=== PATIENT | female | born 1955 | race Caucasian/White ===

== ENCOUNTER 2019-04-08 13:41 | Emergency (ER) | payer OTHER, MEDICAID ==
[~2019-04-08] VITALS: Ht 160 cm; Wt 68.5 kg
[2019-04-08 13:41] VITALS: BP_SYST 137
[2019-04-08 16:28] VITALS: BP_SYST 127
== END 2019-04-08 16:29 | disposition home or self-care (01) ==
LOC: SED 13:41
DX: S01.511D Laceration without foreign body of lip, subsequent encounter (principal); W18.09XD Striking against other object with subsequent fall, subsequent encounter
CPT/HCPCS: 99281

== ENCOUNTER 2019-04-13 08:53 | Emergency (ER) | payer OTHER, MEDICAID ==
[~2019-04-13] VITALS: Ht 160 cm; Wt 67.6 kg
[2019-04-13 08:56] VITALS: BP_SYST 112
[2019-04-13 09:00] VITALS: BP_SYST 112
== END 2019-04-13 09:26 | disposition home or self-care (01) ==
LOC: SED 08:53
DX: S01.511D Laceration without foreign body of lip, subsequent encounter (principal); X58.XXXD Exposure to other specified factors, subsequent encounter
CPT/HCPCS: 99281

== ENCOUNTER 2019-05-02 21:00 | Emergency (ER) | payer OTHER, MEDICAID ==
[~2019-05-02] VITALS: Ht 160 cm; Wt 68.5 kg
[2019-05-02 21:15] VITALS: BP_SYST 100
[2019-05-02] MEDS ORDERED: LIDOCAINE 1% 10 MG/ML, 20 ML MDV INJ ONE (21:15)
--- NOTE | 2019-05-02 21:15 | NUR ---
Patient to ER bed 08 to gown for evaluation. Side rails up. Report received from MAYITO Hernandez
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
--- NOTE | 2019-05-02 21:30 | NUR ---
ER Dr. Doyle at bedside examining patient.
[2019-05-02] MEDS ORDERED: NEOMY SULF/BACITRAC ZN/POLY 28 GM OINT..GM. TP ONE (22:00)
--- NOTE | 2019-05-02 22:23 | NUR ---
Bacitracin not available at this time. Patient will be discharged with prescription to be filled.
--- NOTE | 2019-05-02 22:25 | NUR ---
Patient given written and verbal discharge instructions and verbalizes understanding. ER MD discussed with patient the results and treatment provided. Patient in stable condition. ID arm band removed. wound dressing applied, no active bleeding. Rx of neosporin given. Patient educated on pain management and to follow up with PMD in 2 days for wound check, and 7-9 days for suture removal. Opportunity for questions provided and answered. Medication side effect fact sheet provided.
[2019-05-02 22:29] VITALS: BP_SYST 112
== END 2019-05-02 22:25 | disposition home or self-care (01) ==
LOC: SED 21:00
DX: S41.112A Laceration without foreign body of left upper arm, initial encounter (principal); W45.8XXA Other foreign body or object entering through skin, initial encounter; Y93.89 Activity, other specified; Y92.89 Other specified places as the place of occurrence of the external cause; Y99.8 Other external cause status
CPT/HCPCS: 12002; 99283; J2001

== ENCOUNTER 2019-05-05 08:31 | Emergency (ER) | payer OTHER, MEDICAID ==
[~2019-05-05] VITALS: Ht 152.4 cm; Wt 72.6 kg
[2019-05-05 08:31] VITALS: BP_SYST 136
--- NOTE | 2019-05-05 08:34 | NUR ---
BROUGHT BACK TO BED #4 VIA WHEELCHAIR AND TRIAGED. REPORT GIVEN TO ZACKERY
--- NOTE | 2019-05-05 08:35 | NUR ---
Pt bib caregiver for wound check.
--- NOTE | 2019-05-05 08:40 | NUR ---
ALFRED Young at bedside examining patient.
--- NOTE | 2019-05-05 08:58 | NUR ---
Site to LA cleansed with NS. Site measures approximately approx 5cm. Nonadherent dressing and antibiotic ointment dressing applied. Tetanus vaccination current.
[2019-05-05] MEDS ORDERED: BACITRACIN 1 GM OINT TP ONE (09:00)
[2019-05-05 09:04] VITALS: BP_SYST 136
--- NOTE | 2019-05-05 09:04 | NUR ---
Patient given written and verbal discharge instructions and verbalizes understanding. ER MD discussed with patient the results and treatment provided. Patient in stable condition. ID arm band removed. No Rx given. Patient educated on pain management and to follow up with PMD. Pain Scale 0 Opportunity for questions provided and answered. Medication side effect fact sheet provided.
== END 2019-05-05 09:04 | disposition home or self-care (01) ==
LOC: SED 08:31
DX: S41.112D Laceration without foreign body of left upper arm, subsequent encounter (principal); X58.XXXD Exposure to other specified factors, subsequent encounter
CPT/HCPCS: 99281

== ENCOUNTER 2019-05-12 08:26 | Emergency (ER) | payer OTHER, MEDICAID ==
[~2019-05-12] VITALS: Ht 160 cm; Wt 71.2 kg
[2019-05-12 08:26] VITALS: BP_SYST 98
--- NOTE | 2019-05-12 08:26 | NUR ---
BROUGHT BACK TO BED #7 AND TRIAGED. REPORT GIVEN TO PRASAD
--- NOTE | 2019-05-12 08:42 | NUR ---
PATIENT CAME IN TO GET SUTURES REMOVED. DRESSING IS DRY AND INTACT. PATIENT FELL OUT OF WHEEL CHAIR LAST WEDNESDAY 05/02. PATIENT DENIES PAIN AND SOB. PATIENT DENIES NAUSEA AND VOMITING. PATIENT IS ALERT AND ORIENTED. 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
--- NOTE | 2019-05-12 08:46 | NUR ---
Luke la in [facility] - 05/12/19 at 0857 by SAMI MOTHER AT BEDSIDE.
--- NOTE | 2019-05-12 08:48 | NUR ---
ER Dr. HOANG at bedside examining patient.
--- NOTE | 2019-05-12 08:50 | NUR ---
Luke la in [facility] - 05/12/19 at 0903 by SAMI MOTHER AT BEDSIDE.
[2019-05-12 09:14] VITALS: BP_SYST 98
--- NOTE | 2019-05-12 09:14 | NUR ---
Patient given written and verbal discharge instructions and verbalizes understanding. ER MD discussed with patient the results and treatment provided. Patient in stable condition. ID arm band REMOVED. Rx of KEFLEX given. Patient educated on pain management and to follow up with PMD. Pain Scale 0/10. Opportunity for questions provided and answered. Medication side effect fact sheet provided.
== END 2019-05-12 09:14 | disposition home or self-care (01) ==
LOC: SED 08:26
DX: T81.33XD Disruption of traumatic injury wound repair, subsequent encounter (principal)
CPT/HCPCS: 99283

== ENCOUNTER 2019-05-19 08:41 | Emergency (ER) | payer OTHER, MEDICAID ==
[~2019-05-19] VITALS: Ht 157.5 cm; Wt 68.0 kg
[2019-05-19 08:41] VITALS: BP_SYST 104
--- NOTE | 2019-05-19 08:41 | NUR ---
BROUGHT BACK TO BED #1 VIA PTS WHEELCHAIR, PLACED IN BED AND TRIAGED. REPORT GIVEN TO PRASAD
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
--- NOTE | 2019-05-19 09:53 | NUR ---
ER Dr. CLEMENTS at bedside examining patient.
[2019-05-19 10:03] VITALS: BP_SYST 104
--- NOTE | 2019-05-19 10:03 | NUR ---
Patient given written and verbal discharge instructions and verbalizes understanding. ER MD discussed with patient the results and treatment provided. Patient in stable condition. ID arm band removed. NO Rx given. Patient educated on pain management and to follow up with PMD. Pain Scale 0/10. Opportunity for questions provided and answered. Medication side effect fact sheet provided.
== END 2019-05-19 10:03 | disposition home or self-care (01) ==
LOC: SED 08:41
DX: S41.112D Laceration without foreign body of left upper arm, subsequent encounter (principal); X58.XXXD Exposure to other specified factors, subsequent encounter
CPT/HCPCS: 99281

== ENCOUNTER 2023-01-05 17:48 | Emergency (ER) | payer OTHER, MEDICAID ==
[~2023-01-05] VITALS: Ht 160 cm; Wt 56.2 kg
[2023-01-05 17:52] VITALS: BP_SYST 82
--- NOTE | 2023-01-05 18:18 | NUR ---
RECHECKED B/P 90/46 HR 83
--- NOTE | 2023-01-05 18:22 | NUR ---
Patient to ER bed 03 to gown for evaluation. Side rails up.
[2023-01-05] MEDS ORDERED: LIDOCAINE 1% 10 MG/ML, 20 ML MDV ID ONE (18:30)
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
--- NOTE | 2023-01-05 18:54 | NUR ---
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
--- NOTE | 2023-01-05 19:24 | NUR ---
pt report to luis carlos rn
[2023-01-05 20:08] VITALS: BP_SYST 127
--- NOTE | 2023-01-05 20:18 | NUR ---
Patient given written and verbal discharge instructions and verbalizes understanding. ER MD discussed with patient the results and treatment provided. Patient in stable condition. ID arm band removed. Patient educated on pain management and to follow up with PMD. Pain Scale [0]. Opportunity for questions provided and answered.
== END 2023-01-05 20:16 | disposition home or self-care (01) ==
LOC: SED 17:48
DX: S62.630A Displaced fracture of distal phalanx of right index finger, initial encounter for closed fracture (principal); S61.210A Laceration without foreign body of right index finger without damage to nail, initial encounter; S61.212A Laceration without foreign body of right middle finger without damage to nail, initial encounter; I10 Essential (primary) hypertension; Z79.899 Other long term (current) drug therapy; W23.0XXA Caught, crushed, jammed, or pinched between moving objects, initial encounter; Y93.89 Activity, other specified; Y92.89 Other specified places as the place of occurrence of the external cause; Y99.8 Other external cause status
CPT/HCPCS: 99283; 73130; 12002; 29130; J2001

== ENCOUNTER 2023-12-29 20:08 | Emergency (ER) | payer OTHER, MEDICAID ==
[~2023-12-29] VITALS: Ht 160 cm; Wt 68.0 kg
[2023-12-29 20:55] VITALS: BP_SYST 126; PULSE 92; RESP 20; TEMP 98.2; O2SAT 100
[2023-12-29 21:13] LABS: BASOPHILS # (AUTO) 0.1 K/uL (0.0-0.2); BASOPHILS % (AUTO) 0.7 % (0.0-2.0); EOSINOPHILS # (AUTO) 0.2 K/uL (0.0-0.4); EOSINOPHILS % (AUTO) 2.9 % (0.0-4.0); HEMATOCRIT 30.3 % (36-48); HEMOGLOBIN 10.3 g/dL (12.0-16.0); LYMPHOCYTES % (AUTO) 27.5 % (20.5-51.5); MEAN CORPUSCULAR HEMOGLOBIN 32 pg (27-31); MEAN CORPUSCULAR HGB CONC 34 % (32-36); MEAN CORPUSCULAR VOLUME 95 fL (79.0-98.0); NEUTROPHILS # (AUTO) 4.1 K/uL (1.8-7.7); NEUTROPHILS % (AUTO) 54.9 % (40.0-70.0); PLATELET COUNT (AUTO) 187 K/uL (130-430); RED BLOOD CELL COUNT(AUTO) 3.18 MIL/uL (4.2-6.2); RED CELL DISTRIBUTION WIDTH 14.6 % (9.0-15.0); WHITE BLOOD COUNT (AUTO) 7.4 K/uL (4.8-10.8)
[2023-12-29 21:44] LABS: PROTHROMBIN TIME 10.4 SECS (9.5-12.5)
[2023-12-29 21:59] LABS: ALANINE AMINOTRANSFERASE 15 U/L (12-78); ALBUMIN 2.6 g/dL (3.4-4.8); ANION GAP 6 (5-15); ASPARTATE AMINOTRANSFERASE 15 U/L (10-37); CALCIUM 8.5 mg/dL (8.4-11.0); CARBON DIOXIDE 28 mmol/L (23-29); CHLORIDE 107 mmol/L (98-107); CREATININE 1.02 mg/dL (0.55-1.30); GFR AFRICAN AMERICAN 70 mL/min (>90); GLUCOSE 99 mg/dL (74-106); POTASSIUM 4.8 mmol/L (3.5-5.1); SODIUM SERUM 141 mmol/L (136-145); TOTAL BILIRUBIN 0.2 mg/dL (0.0-1.0); UREA NITROGEN, BLOOD 21 mg/dL (8-21)
[2023-12-29 22:01] LABS: GFR NON AFRICAN-AMERICAN 58 mL/min (>90)
[2023-12-29 22:06] LABS: BILIRUBIN,DIRECT 0.1 mg/dL (0.0-0.3); CREATINE KINASE, TOTAL 33 U/L (26-192); FREE T4 (FREE THYROXINE) 1.2 ng/dl (0.8-1.5); THYROID STIMULATING HORMONE 1.52 uIu/mL (0.36-3.74)
[2023-12-29 22:59] LABS: BILIRUBIN,URINE NEGATIVE (NEGATIVE); BLOOD, URINE NEGATIVE (NEGATIVE); COLOR,URINE YELLOW (YELLOW); GLUCOSE,URINE NEGATIVE (NEGATIVE); KETONES,URINE TRACE (NEGATIVE); LEUKOCYTE ESTERASE ,URINE NEGATIVE (NEGATIVE); NITRITE, URINE NEGATIVE (NEGATIVE); PH,URINE 7.5 (5.0-8.0); PROTEIN URINE NEGATIVE (NEGATIVE)
[2023-12-29 23:04] LABS: CLARITY/URINE SLIGHTLY HAZY (CLEAR)
[2023-12-30 00:16] VITALS: RESP 20; TEMP 98.2
[2023-12-30 00:20] VITALS: BP_SYST 152; PULSE 97; O2SAT 96
== END 2023-12-30 00:20 | disposition home or self-care (01) ==
LOC: SED 20:08
DX: S22.050A Wedge compression fracture of T5-T6 vertebra, initial encounter for closed fracture (principal); R51.9 Headache, unspecified; M54.50 Low back pain, unspecified; I10 Essential (primary) hypertension; Z79.899 Other long term (current) drug therapy; W01.0XXA Fall on same level from slipping, tripping and stumbling without subsequent striking against object, initial encounter; Y93.89 Activity, other specified; Y92.89 Other specified places as the place of occurrence of the external cause; Y99.8 Other external cause status
CPT/HCPCS: 36415; 70450-TC; 71045; 72128; 72131; 80048; 80076; 81001; 81003; 82550; 83605; 84439; 84443; 84484; 85025; 85610; 85730; 93005; 99285

== ENCOUNTER 2024-02-24 17:48 | Inpatient (IN) | payer OTHER, MEDICAID ==
[~2024-02-24] VITALS: Ht 157.5 cm; Wt 62.6 kg
[~2024-02-24 17:48] MED LIST: APIX5TAB PO; BUPR-551 PO; DIVA500T PO; FLUT16SP16 NS; FOLI-43 PO; IBUP-1505 PO; IPRA3AMP9 INH; LEVO88CA4; LORA0.5T PO; LURA40TA2 PO; MEGE400O45 PO; MEMA10TA22 PO; MIDO5TAB4 PO; MONT-47 PO; MULT-1184 PO; PANT20TA2 PO; VENL150C53 PO; VITD2000 PO
[2024-02-24 18:08] VITALS: BP_SYST 127; PULSE 95; RESP 17; TEMP 97.5; O2SAT 96
[2024-02-24] MEDS: NACL 0.9% 1,000 ML IV ONE (18:51)
[2024-02-24 18:57] LABS: HEMATOCRIT 29.7 % (36-48); HEMOGLOBIN 9.9 g/dL (12.0-16.0); MEAN CORPUSCULAR HEMOGLOBIN 31 pg (27-31); MEAN CORPUSCULAR HGB CONC 33 % (32-36); MEAN CORPUSCULAR VOLUME 93 fL (79.0-98.0); PLATELET COUNT (AUTO) 166 K/uL (130-430); RED BLOOD CELL COUNT(AUTO) 3.19 MIL/uL (4.2-6.2); RED CELL DISTRIBUTION WIDTH 15.5 % (9.0-15.0); WHITE BLOOD COUNT (AUTO) 6.6 K/uL (4.8-10.8)
[2024-02-24 20:12] LABS: ANISOCYTOSIS 1+; BAND % (MANUAL) 6 % (0-6); BASOPHILS % (MANUAL) 0 % (0-2); EOSINOPHILS % (MANUAL) 7 % (0-7); LYMPHOCYTES % (MANUAL) 19 % (20-46); MONOCYTES % (MANUAL) 18 % (0-11); OVALOCYTES FEW; PLATELET ESTIMATE ADEQUATE (ADEQUATE)
[2024-02-24 20:21] LABS: INR 1.2 (0.8-1.2)
[2024-02-24 20:30] LABS: BILIRUBIN,URINE NEGATIVE (NEGATIVE); BLOOD, URINE 1+ (NEGATIVE); CLARITY/URINE CLOUDY (CLEAR); COLOR,URINE YELLOW (YELLOW); GLUCOSE,URINE NEGATIVE (NEGATIVE); KETONES,URINE NEGATIVE (NEGATIVE); LEUKOCYTE ESTERASE ,URINE 3+ (NEGATIVE); NITRITE, URINE POSITIVE (NEGATIVE); PROTEIN URINE 2+ (NEGATIVE); UROBILINOGEN,URINE 0.2 (0.2-1.0)
[2024-02-24 20:32] LABS: ALANINE AMINOTRANSFERASE 15 U/L (12-78); ALBUMIN 2.5 g/dL (3.4-4.8); ANION GAP 11 (5-15); ASPARTATE AMINOTRANSFERASE 16 U/L (10-37); BILIRUBIN,DIRECT 0.1 mg/dL (0.0-0.3); CALCIUM 8.2 mg/dL (8.4-11.0); CARBON DIOXIDE 21 mmol/L (23-29); CHLORIDE 103 mmol/L (98-107); CREATININE 1.83 mg/dL (0.55-1.30); FREE T4 (FREE THYROXINE) 1.2 ng/dl (0.8-1.5); GFR AFRICAN AMERICAN 36 mL/min (>90); GLUCOSE 97 mg/dL (74-106); SODIUM SERUM 135 mmol/L (136-145); THYROID STIMULATING HORMONE 4.28 uIu/mL (0.36-3.74); TOTAL BILIRUBIN 0.2 mg/dL (0.0-1.0); TOTAL PROTEIN, SERUM 5.8 g/dL (6.4-8.3); UREA NITROGEN, BLOOD 23 mg/dL (8-21)
[2024-02-24 20:35] LABS: GFR NON AFRICAN-AMERICAN 29 mL/min (>90)
[2024-02-24] MEDS ORDERED: VANCOMYCIN HCL 1000 MG/VIAL IV ONE (20:56)
[2024-02-24] MEDS ORDERED: PIPERACILLIN/TAZOBACTAM 3.375 GM/VIAL (ZOSYN) IV ONE (20:56)
[2024-02-24] MEDS: PIPERACILLIN/TAZO 3.375 GM in NS 50 ML IV ONE (20:59)
[2024-02-24] MEDS: VANCOMYCIN HCL 1,000 MG in NS 250 ML IV ONE (21:00)
[2024-02-24 21:02] LABS: BACTERIA,URINE MANY /HPF (None Seen); WBC,URINE 50-80 /HPF (0-3)
[2024-02-24] MEDS ORDERED: HYDROcodone/ACETAMIN 5-325 MG TAB (NORCO/ VICODIN) PO PRN (22:00)
[2024-02-24] MEDS ORDERED: MORPHINE 2 MG/ML INJ. SYRINGE IVP PRN (22:00)
[2024-02-24] MEDS ORDERED: HYDROcodone/ACETAMIN 10-325 MG TAB PO PRN (22:00)
[2024-02-24] MEDS ORDERED: ONDANSETRON HCL 4 MG/2 ML VIAL IVP PRN (22:00)
[2024-02-24 22:15] VITALS: BP_SYST 124; PULSE 95; O2SAT 94
[2024-02-25] VITALS (9 sets, daily range): BP systolic 87–121; PULSE 63–101; RESP 18–20; TEMP 96.8–97.6; O2SAT 94–97
[2024-02-25] MEDS: PIPERACILLIN/TAZOBACTAM 3.375 GM/VIAL (ZOSYN) IV ONE (04:01)
[2024-02-25] MEDS: PIPERACILLIN/TAZO 3.375/DEX-IS 50 ML IV SCH (04:02)
[2024-02-25 05:08] LABS: INFLUENZA TYPE A Negative (NEGATIVE); INFLUENZA TYPE B NEGATIVE (NEGATIVE)
[2024-02-25] MEDS: NS 500 ML IV ONE (08:56)
[2024-02-25 09:30] LABS: BASOPHILS % (AUTO) 0.9 % (0.0-2.0); EOSINOPHILS # (AUTO) 0.2 K/uL (0.0-0.4); EOSINOPHILS % (AUTO) 5.3 % (0.0-4.0); HEMATOCRIT 26.3 % (36-48); HEMOGLOBIN 8.6 g/dL (12.0-16.0); LYMPHOCYTES # (AUTO) 1.2 K/uL (1.0-5.5); LYMPHOCYTES % (AUTO) 25.6 % (20.5-51.5); MEAN CORPUSCULAR HEMOGLOBIN 31 pg (27-31); MEAN CORPUSCULAR HGB CONC 33 % (32-36); MEAN CORPUSCULAR VOLUME 93 fL (79.0-98.0); MONOCYTES # (AUTO) 0.9 K/uL (0.0-1.0); MONOCYTES % (AUTO) 19.8 % (1.7-9.3); NEUTROPHILS # (AUTO) 2.2 K/uL (1.8-7.7); NEUTROPHILS % (AUTO) 48.4 % (40.0-70.0); PLATELET COUNT (AUTO) 143 K/uL (130-430); RED BLOOD CELL COUNT(AUTO) 2.82 MIL/uL (4.2-6.2); RED CELL DISTRIBUTION WIDTH 15.7 % (9.0-15.0); WHITE BLOOD COUNT (AUTO) 4.6 K/uL (4.8-10.8)
[2024-02-25 09:43] LABS: ALBUMIN 2.1 g/dL (3.4-4.8); CALCIUM 8.3 mg/dL (8.4-11.0); CREATININE 1.32 mg/dL (0.55-1.30); POTASSIUM 4.1 mmol/L (3.5-5.1); TOTAL BILIRUBIN 0.4 mg/dL (0.0-1.0); TOTAL PROTEIN, SERUM 5.5 g/dL (6.4-8.3)
[2024-02-25] MEDS: D5NS 500 ML IV SCH (13:01)
[2024-02-25] MEDS ORDERED: NON-FORMULARY MEDICATION (Lurasidone Hcl (Latuda) 40 MG) PO SCH (17:00)
[2024-02-25] MEDS: FUROSEMIDE 20 MG/2 ML VIAL IVP ONE (17:45)
[2024-02-25] MEDS: LORazepam 2 MG/ML VIAL IM PRN (19:54)
[2024-02-25] MEDS ORDERED: VANCOMYCIN HCL 750 MG in NS 250 ML IV SCH (21:00)
[2024-02-25] MEDS ORDERED: MIRTAZAPINE 15 MG TABLET PO SCH (21:00)
[2024-02-25] MEDS: MONTELUKAST 10 MG TABLET PO SCH (22:49)
[2024-02-25] MEDS: MEGESTROL ACETATE 400 MG/10 ML UDC PO SCH (22:49)
[2024-02-25] MEDS: APIXABAN 2.5 MG TABLET PO SCH (22:50)
[2024-02-25] MEDS: MEMANTINE HCL 5 MG TABLET PO SCH (22:50)
[2024-02-25] MEDS: MIDODRINE HCL 5 MG TABLET (PROAMATINE) PO SCH (22:56)
[2024-02-25] MEDS: DIVALPROEX SODIUM 500 MG TAB.SR.24H (DEPAKOTE ER) PO ONE (22:57)
[2024-02-26 01:30] VITALS: BP_SYST 103; PULSE 96; RESP 16; TEMP 96.5; O2SAT 97
[2024-02-26 04:55] LABS: BASOPHILS % (AUTO) 0.5 % (0.0-2.0); EOSINOPHILS # (AUTO) 0.3 K/uL (0.0-0.4); EOSINOPHILS % (AUTO) 4.3 % (0.0-4.0); HEMATOCRIT 28.4 % (36-48); HEMOGLOBIN 9.3 g/dL (12.0-16.0); LYMPHOCYTES # (AUTO) 1.8 K/uL (1.0-5.5); LYMPHOCYTES % (AUTO) 27.3 % (20.5-51.5); MEAN CORPUSCULAR HEMOGLOBIN 30 pg (27-31); MEAN CORPUSCULAR HGB CONC 33 % (32-36); MEAN CORPUSCULAR VOLUME 92 fL (79.0-98.0); MONOCYTES # (AUTO) 1.1 K/uL (0.0-1.0); MONOCYTES % (AUTO) 16.8 % (1.7-9.3); NEUTROPHILS # (AUTO) 3.3 K/uL (1.8-7.7); NEUTROPHILS % (AUTO) 51.1 % (40.0-70.0); PLATELET COUNT (AUTO) 164 K/uL (130-430); RED BLOOD CELL COUNT(AUTO) 3.08 MIL/uL (4.2-6.2); RED CELL DISTRIBUTION WIDTH 15.5 % (9.0-15.0); WHITE BLOOD COUNT (AUTO) 6.5 K/uL (4.8-10.8)
[2024-02-26 05:32] LABS: ALBUMIN 2.3 g/dL (3.4-4.8); CALCIUM 8.9 mg/dL (8.4-11.0); CREATININE 1.12 mg/dL (0.55-1.30); POTASSIUM 3.8 mmol/L (3.5-5.1); TOTAL BILIRUBIN 0.4 mg/dL (0.0-1.0); TOTAL PROTEIN, SERUM 6.2 g/dL (6.4-8.3)
[2024-02-26] MEDS: LEVOTHYROXINE SODIUM 0.088 MG TABLET PO SCH (07:00)
[2024-02-26 08:05] VITALS: O2SAT 99
[2024-02-26] MEDS: DIVALPROEX SODIUM 500 MG TAB.SR.24H (DEPAKOTE ER) PO SCH (09:00)
[2024-02-26 11:27] VITALS: BP_SYST 132; PULSE 85; RESP 16; TEMP 97.5; O2SAT 97
[2024-02-26] MEDS: FLUMAZENIL 0.1 MG/ML IVP ONE (15:36)
[2024-02-26 15:40] LABS: ABG O2 SAT% ESTIMATE 98.3 % (94.0-100.0); BLOOD GAS HCO3 20.7 mmol/L (21.0-27.0); BLOOD GAS PCO2 32.3 mmHg (35.0-45.0); BLOOD GAS PH 7.424 (7.350-7.450); BLOOD GAS PO2 114.1 mmHg (75.0-100.0)
[2024-02-26 15:44] LABS: ALLEN'S TEST POSITIVE (P)
[2024-02-26] MEDS ORDERED: HALOPERIDOL LACTATE 5 MG/ML VIAL IM PRN (18:00)
[2024-02-26] MEDS: LURASIDONE 40 MG PO SCH (18:00)
[2024-02-26] MEDS ORDERED: LORazepam 2 MG/ML VIAL IV PRN (18:00)
[2024-02-26] MEDS ORDERED: LORazepam 2 MG/ML VIAL IM PRN (18:00)
[2024-02-26 20:00] VITALS: BP_SYST 120; PULSE 85; RESP 18; TEMP 97.7; O2SAT 97
[2024-02-26 22:50] VITALS: O2SAT 99
[2024-02-26] MEDS: ALBUTEROL SULFATE 0.083% 2.5 MG/3 ML VIAL.NEB INH PRN (22:50)
[2024-02-27] VITALS (10 sets, daily range): BP systolic 102–122; PULSE 78–91; RESP 16–18; TEMP 97.1–97.6; O2SAT 3–100
[2024-02-27 06:55] LABS: BASOPHILS # (AUTO) 0.1 K/uL (0.0-0.2); BASOPHILS % (AUTO) 1.2 % (0.0-2.0); EOSINOPHILS # (AUTO) 0.4 K/uL (0.0-0.4); EOSINOPHILS % (AUTO) 6.2 % (0.0-4.0); HEMATOCRIT 30.5 % (36-48); LYMPHOCYTES # (AUTO) 2.1 K/uL (1.0-5.5); LYMPHOCYTES % (AUTO) 29.2 % (20.5-51.5); MEAN CORPUSCULAR HEMOGLOBIN 31 pg (27-31); MEAN CORPUSCULAR HGB CONC 33 % (32-36); MEAN CORPUSCULAR VOLUME 93 fL (79.0-98.0); MONOCYTES % (AUTO) 14.6 % (1.7-9.3); NEUTROPHILS # (AUTO) 3.5 K/uL (1.8-7.7); NEUTROPHILS % (AUTO) 48.8 % (40.0-70.0); PLATELET COUNT (AUTO) 162 K/uL (130-430); RED BLOOD CELL COUNT(AUTO) 3.27 MIL/uL (4.2-6.2); RED CELL DISTRIBUTION WIDTH 15.2 % (9.0-15.0); WHITE BLOOD COUNT (AUTO) 7.2 K/uL (4.8-10.8)
[2024-02-27 07:04] LABS: CALCIUM 8.6 mg/dL (8.4-11.0); CREATININE 0.91 mg/dL (0.55-1.30); POTASSIUM 3.6 mmol/L (3.5-5.1); TOTAL BILIRUBIN 0.4 mg/dL (0.0-1.0); TOTAL PROTEIN, SERUM 5.8 g/dL (6.4-8.3)
[2024-02-27] MEDS ORDERED: FLUTICASONE FUROATE 100 MCG BLST.W.DEV INH SCH (09:00)
[2024-02-27] MEDS: D5NS 1,000 ML IV SCH (18:27)
[2024-02-27] MEDS: D5W IV SCH (18:28)
[2024-02-27] MEDS: VALPROATE SODIUM IV SCH (18:28)
[2024-02-27] MEDS: ENOXAPARIN SODIUM 30 MG/0.3 ML SYRINGE SUBCUT SCH (19:45)
[2024-02-27] MEDS: BUDESONIDE 0.5 MG/2 ML AMPUL.NEB INH SCH (20:30)
[2024-02-27] MEDS: DOXYCYCLINE HYCLATE 100 MG in D5W 100 ML IV SCH (21:04)
[2024-02-28] VITALS (10 sets, daily range): BP systolic 98–133; PULSE 70–95; RESP 17–18; TEMP 96.7–98.7; O2SAT 92–99
[2024-02-28] MEDS ORDERED: PHENYTOIN SODIUM 100 MG/2 ML VIAL (DILANTIN) IVP PRN (00:15)
[2024-02-28 06:24] LABS: BASOPHILS # (AUTO) 0.1 K/uL (0.0-0.2); BASOPHILS % (AUTO) 0.8 % (0.0-2.0); EOSINOPHILS # (AUTO) 0.5 K/uL (0.0-0.4); EOSINOPHILS % (AUTO) 6.5 % (0.0-4.0); HEMATOCRIT 32.2 % (36-48); HEMOGLOBIN 10.4 g/dL (12.0-16.0); LYMPHOCYTES # (AUTO) 2.4 K/uL (1.0-5.5); LYMPHOCYTES % (AUTO) 34.3 % (20.5-51.5); MEAN CORPUSCULAR HEMOGLOBIN 30 pg (27-31); MEAN CORPUSCULAR HGB CONC 32 % (32-36); MEAN CORPUSCULAR VOLUME 94 fL (79.0-98.0); MONOCYTES % (AUTO) 14.3 % (1.7-9.3); NEUTROPHILS # (AUTO) 3.1 K/uL (1.8-7.7); NEUTROPHILS % (AUTO) 44.1 % (40.0-70.0); PLATELET COUNT (AUTO) 194 K/uL (130-430); RED BLOOD CELL COUNT(AUTO) 3.43 MIL/uL (4.2-6.2); RED CELL DISTRIBUTION WIDTH 15.7 % (9.0-15.0); WHITE BLOOD COUNT (AUTO) 7.1 K/uL (4.8-10.8)
[2024-02-28 06:51] LABS: CALCIUM 8.5 mg/dL (8.4-11.0); CREATININE 0.81 mg/dL (0.55-1.30); TOTAL BILIRUBIN 0.3 mg/dL (0.0-1.0); TOTAL PROTEIN, SERUM 5.9 g/dL (6.4-8.3)
[2024-02-28] MEDS: ACETAMINOPHEN 325 MG TABLET PO PRN (08:53)
[2024-02-28] MEDS ORDERED: DIVALPROEX SODIUM 500 MG TAB.SR.24H (DEPAKOTE ER) PO ONE (11:00)
[2024-02-28] MEDS ORDERED: DIVALPROEX SODIUM 500 MG TAB.SR.24H (DEPAKOTE ER) PO SCH (21:00)
[2024-02-28] MEDS: APIXABAN 2.5 MG TABLET PO SCH (21:15)
[2024-02-28] MEDS: DIVALPROEX SODIUM 500 MG TAB.SR.24H (DEPAKOTE ER) PO SCH (21:57)
[2024-02-29] VITALS (8 sets, daily range): BP systolic 102–124; PULSE 80–100; RESP 16–20; TEMP 96.8–99; O2SAT 97–99
[2024-02-29] MEDS: LORazepam 1 MG TABLET PO PRN (01:18)
[2024-02-29 04:29] LABS: BASOPHILS % (AUTO) 0.5 % (0.0-2.0); EOSINOPHILS # (AUTO) 0.3 K/uL (0.0-0.4); EOSINOPHILS % (AUTO) 2.9 % (0.0-4.0); HEMOGLOBIN 10.3 g/dL (12.0-16.0); LYMPHOCYTES # (AUTO) 3.3 K/uL (1.0-5.5); LYMPHOCYTES % (AUTO) 32.4 % (20.5-51.5); MEAN CORPUSCULAR HEMOGLOBIN 31 pg (27-31); MEAN CORPUSCULAR HGB CONC 33 % (32-36); MEAN CORPUSCULAR VOLUME 92 fL (79.0-98.0); MONOCYTES # (AUTO) 1.3 K/uL (0.0-1.0); MONOCYTES % (AUTO) 12.5 % (1.7-9.3); NEUTROPHILS # (AUTO) 5.3 K/uL (1.8-7.7); NEUTROPHILS % (AUTO) 51.7 % (40.0-70.0); PLATELET COUNT (AUTO) 213 K/uL (130-430); RED BLOOD CELL COUNT(AUTO) 3.36 MIL/uL (4.2-6.2); RED CELL DISTRIBUTION WIDTH 15.3 % (9.0-15.0); WHITE BLOOD COUNT (AUTO) 10.3 K/uL (4.8-10.8)
[2024-02-29 05:12] LABS: ALBUMIN 2.1 g/dL (3.4-4.8); CALCIUM 8.9 mg/dL (8.4-11.0); CREATININE 0.83 mg/dL (0.55-1.30); POTASSIUM 3.6 mmol/L (3.5-5.1); TOTAL BILIRUBIN 0.3 mg/dL (0.0-1.0); TOTAL PROTEIN, SERUM 5.9 g/dL (6.4-8.3)
[2024-02-29] MEDS: NS IV SCH (10:01)
[2024-02-29] MEDS: MINOCYCLINE HCL IV SCH (10:01)
[2024-02-29] MEDS: BISACODYL 10 MG/SUPPOSITORY RC PRN (18:53)
[2024-02-29] MEDS: DOXYCYCLINE HYCLATE 100 MG in D5W 100 ML IV SCH (20:52)
[2024-03-01 00:45] VITALS: BP_SYST 141; PULSE 89; RESP 19; TEMP 97.6; O2SAT 99
[2024-03-01 04:41] LABS: BASOPHILS # (AUTO) 0.1 K/uL (0.0-0.2); BASOPHILS % (AUTO) 0.8 % (0.0-2.0); EOSINOPHILS # (AUTO) 0.6 K/uL (0.0-0.4); EOSINOPHILS % (AUTO) 6.3 % (0.0-4.0); HEMATOCRIT 33.2 % (36-48); HEMOGLOBIN 10.9 g/dL (12.0-16.0); LYMPHOCYTES # (AUTO) 3.8 K/uL (1.0-5.5); LYMPHOCYTES % (AUTO) 40.6 % (20.5-51.5); MEAN CORPUSCULAR HEMOGLOBIN 31 pg (27-31); MEAN CORPUSCULAR HGB CONC 33 % (32-36); MEAN CORPUSCULAR VOLUME 94 fL (79.0-98.0); MONOCYTES % (AUTO) 10.5 % (1.7-9.3); NEUTROPHILS # (AUTO) 3.9 K/uL (1.8-7.7); NEUTROPHILS % (AUTO) 41.8 % (40.0-70.0); PLATELET COUNT (AUTO) 216 K/uL (130-430); RED BLOOD CELL COUNT(AUTO) 3.55 MIL/uL (4.2-6.2); RED CELL DISTRIBUTION WIDTH 15.8 % (9.0-15.0); WHITE BLOOD COUNT (AUTO) 9.4 K/uL (4.8-10.8)
[2024-03-01 05:23] LABS: CREATININE 0.74 mg/dL (0.55-1.30); POTASSIUM 4.2 mmol/L (3.5-5.1)
[2024-03-01 05:27] LABS: ERYTHROCYTE SEDIMENTATION RATE 18 MM/HR (0-20)
[2024-03-01 08:00] VITALS: O2SAT 96
[2024-03-01] MEDS ORDERED: DOXY100C5 PO (09:15)
[2024-03-01 09:16] VITALS: O2SAT 99
[2024-03-01 11:49] VITALS: BP_SYST 103; PULSE 95; RESP 17; TEMP 97.5; O2SAT 97
[2024-03-01] MEDS ORDERED: NORMAL SALINE 5 ML DISP.SYRIN IVF SCH (14:00)
[2024-03-01 14:08] VITALS: BP_SYST 103; PULSE 92; RESP 18; TEMP 98.4; O2SAT 97
== END 2024-03-01 15:10 | disposition home or self-care (01) | DRG 871 ==
LOC: SED 17:48 → STU 21:51
PROVIDERS: ADMIT Family Medicine; ATTEND Family Medicine
DX: A41.9 Sepsis, unspecified organism (principal); E43 Unspecified severe protein-calorie malnutrition; J69.0 Pneumonitis due to inhalation of food and vomit; J96.21 Acute and chronic respiratory failure with hypoxia; G93.41 Metabolic encephalopathy; J18.9 Pneumonia, unspecified organism; N17.9 Acute kidney failure, unspecified; F03.93 Unspecified dementia, unspecified severity, with mood disturbance; E86.0 Dehydration; N30.90 Cystitis, unspecified without hematuria; E03.9 Hypothyroidism, unspecified; G40.909 Epilepsy, unspecified, not intractable, without status epilepticus; E88.09 Other disorders of plasma-protein metabolism, not elsewhere classified; D64.9 Anemia, unspecified; E83.51 Hypocalcemia; B96.1 Klebsiella pneumoniae [K. pneumoniae] as the cause of diseases classified elsewhere; N31.9 Neuromuscular dysfunction of bladder, unspecified; N18.9 Chronic kidney disease, unspecified; E16.2 Hypoglycemia, unspecified; R62.50 Unspecified lack of expected normal physiological development in childhood; Z79.01 Long term (current) use of anticoagulants; Z79.899 Other long term (current) drug therapy; Z68.25 Body mass index [BMI] 25.0-25.9, adult
CPT/HCPCS: 36415; 36600; 70450-TC; 71045; 76770; 80048; 80053; 80076; 81000; 81001; 81015; 82803; 82948; 83605; 83735; 83880; 84439; 84443; 84484; 85007; 85025; 85027; 85610; 85651; 85730; 87040; 87081; 87086; 87186; 92610-GN; 93005; 94070; 94640; 94660; 94664; 94760; 95816; 96365; 96367; 97110-GP; 97112-GP; 97530-GP; 99285; G0378; J1650; J1940; J2060; J2543; J3370; J3490; J7050; J7060; J7626

== ENCOUNTER 2024-03-03 11:59 | Emergency (ER) | payer OTHER, MEDICAID ==
[~2024-03-03] VITALS: Ht 160 cm; Wt 68.5 kg
[~2024-03-03 11:59] MED LIST changes: -BUPR-551 PO; +BUPR300T46 PO; +DOXY100C5 PO
[2024-03-03 12:02] VITALS: BP_SYST 101; PULSE 104; RESP 18; TEMP 97.7; O2SAT 98
[2024-03-03] MEDS: SODIUM PHOSPHATE,MONO-DIBASIC 133 ML ENEMA RC ONE (13:04)
[2024-03-03] MEDS ORDERED: PEG4000S4 PO (14:35)
[2024-03-03 15:24] VITALS: BP_SYST 109; PULSE 70; RESP 18; TEMP 97.9; O2SAT 98
== END 2024-03-03 14:56 ==
LOC: SED 11:59
DX: K59.00 Constipation, unspecified (principal); J45.909 Unspecified asthma, uncomplicated; I10 Essential (primary) hypertension; Z79.899 Other long term (current) drug therapy; Z79.2 Long term (current) use of antibiotics
CPT/HCPCS: 99284

== ENCOUNTER 2024-04-07 10:48 | Observation (INO) | payer OTHER, MEDICAID ==
[~2024-04-07] VITALS: Ht 160 cm; Wt 58.5 kg
[~2024-04-07 10:48] MED LIST changes: +BUPR-551 PO; -BUPR300T46 PO; +PEG4000S4 PO
[2024-04-07 10:52] VITALS: BP_SYST 188; PULSE 100; RESP 18; TEMP 97.2; O2SAT 91
[2024-04-07] MEDS: NS 250 ML IV ONE ×2 (12:56→20:32)
[2024-04-07 14:10] LABS: ALANINE AMINOTRANSFERASE 14 U/L (12-78); ALBUMIN 2.1 g/dL (3.4-4.8); ANION GAP 7 (5-15); ASPARTATE AMINOTRANSFERASE 14 U/L (10-37); BASOPHILS % (AUTO) 0.4 % (0.0-2.0); CALCIUM 8.9 mg/dL (8.4-11.0); CARBON DIOXIDE 27 mmol/L (23-29); CHLORIDE 106 mmol/L (98-107); CREATININE 1.02 mg/dL (0.55-1.30); EOSINOPHILS # (AUTO) 0.2 K/uL (0.0-0.4); EOSINOPHILS % (AUTO) 2.4 % (0.0-4.0); GFR AFRICAN AMERICAN 70 mL/min (>90); GLUCOSE 80 mg/dL (74-106); HEMATOCRIT 32.3 % (36-48); HEMOGLOBIN 10.5 g/dL (12.0-16.0); LYMPHOCYTES # (AUTO) 1.8 K/uL (1.0-5.5); LYMPHOCYTES % (AUTO) 27.9 % (20.5-51.5); MEAN CORPUSCULAR HEMOGLOBIN 31 pg (27-31); MEAN CORPUSCULAR HGB CONC 32 % (32-36); MEAN CORPUSCULAR VOLUME 96 fL (79.0-98.0); MONOCYTES % (AUTO) 15.1 % (1.7-9.3); NEUTROPHILS # (AUTO) 3.5 K/uL (1.8-7.7); NEUTROPHILS % (AUTO) 54.2 % (40.0-70.0); PLATELET COUNT (AUTO) 179 K/uL (130-430); POTASSIUM 4.3 mmol/L (3.5-5.1); RED BLOOD CELL COUNT(AUTO) 3.38 MIL/uL (4.2-6.2); RED CELL DISTRIBUTION WIDTH 16.4 % (9.0-15.0); SODIUM SERUM 140 mmol/L (136-145); TOTAL BILIRUBIN 0.2 mg/dL (0.0-1.0); TOTAL PROTEIN, SERUM 5.4 g/dL (6.4-8.3); UREA NITROGEN, BLOOD 22 mg/dL (8-21); WHITE BLOOD COUNT (AUTO) 6.4 K/uL (4.8-10.8)
[2024-04-07 14:12] LABS: BILIRUBIN,DIRECT 0.1 mg/dL (0.0-0.3); GFR NON AFRICAN-AMERICAN 58 mL/min (>90); LIPASE 25 U/L (16-77)
[2024-04-07] MEDS: ACETAMINOPHEN 325 MG TABLET PO ONE (15:33)
[2024-04-07 16:16] LABS: BILIRUBIN,URINE NEGATIVE (NEGATIVE); BLOOD, URINE 3+ (NEGATIVE); COLOR,URINE YELLOW (YELLOW); GLUCOSE,URINE NEGATIVE (NEGATIVE); KETONES,URINE NEGATIVE (NEGATIVE); LEUKOCYTE ESTERASE ,URINE 3+ (NEGATIVE); NITRITE, URINE NEGATIVE (NEGATIVE); PROTEIN URINE 2+ (NEGATIVE); UROBILINOGEN,URINE 0.2 (0.2-1.0)
[2024-04-07 16:17] LABS: CLARITY/URINE HAZY (CLEAR)
[2024-04-07 16:38] LABS: BACTERIA,URINE MANY /HPF (None Seen); WBC,URINE 50-80 /HPF (0-3)
[2024-04-07] MEDS: cefTRIAXone 1 GM IVPB PREMIX 50 ML IV ONE (18:17)
[2024-04-07 21:30] VITALS: BP_SYST 98; PULSE 97; RESP 16; TEMP 97.4; O2SAT 97
[2024-04-07] MEDS: D5/0.45 NS 1,000 ML IV ONE (21:39)
[2024-04-08 00:31] VITALS: BP_SYST 112; PULSE 97; RESP 18; TEMP 97.1; O2SAT 97
[2024-04-08 08:00] VITALS: O2SAT 92
[2024-04-08] MEDS ORDERED: cefTRIAXone 1 GM VIAL IM ONE (09:00)
[2024-04-08] MEDS: IPRATROPIUM/ALBUTEROL SULFATE 3 ML AMPUL.NEB (DUONEB) INH SCH (09:30)
[2024-04-08] MEDS ORDERED: GOLYTELY / COLYTE SOLUTION 4 LITERS PO SCH (09:30)
[2024-04-08 09:40] VITALS: PULSE 99; O2SAT 97
[2024-04-08 12:10] VITALS: BP_SYST 115; PULSE 92; RESP 15; TEMP 97.2; O2SAT 96
[2024-04-08] MEDS ORDERED: MIDO5TAB4 PO (12:39)
[2024-04-08] MEDS ORDERED: LEVO250T73 PO (12:41)
[2024-04-08 16:09] VITALS: BP_SYST 115; PULSE 92; RESP 15; TEMP 97.2; O2SAT 96
[2024-04-08] MEDS ORDERED: CEFTRIAXONE SOD 1 GM/ D5W 50 ML IV SCH (18:00)
[2024-04-08] MEDS ORDERED: MONTELUKAST 10 MG TABLET PO SCH (21:00)
[2024-04-08] MEDS ORDERED: MEMANTINE HCL 5 MG TABLET PO SCH (21:00)
[2024-04-08] MEDS ORDERED: MIDODRINE HCL 5 MG TABLET (PROAMATINE) PO SCH (21:00)
[2024-04-08] MEDS ORDERED: MEGESTROL ACETATE 400 MG/10 ML UDC PO SCH (21:00)
[2024-04-08] MEDS ORDERED: DIVALPROEX SODIUM 500 MG TAB.SR.24H (DEPAKOTE ER) PO SCH (21:00)
[2024-04-09] MEDS ORDERED: FOLIC ACID 1 MG TABLET PO SCH (09:00)
[2024-04-09] MEDS ORDERED: PANTOPRAZOLE SODIUM 40 MG TAB PO SCH (09:00)
[2024-04-09] MEDS ORDERED: CHOLECALCIFEROL (VITAMIN D3) 2,000 UNIT TABLET PO SCH (09:00)
[2024-04-09] MEDS ORDERED: FLUTICASONE PROPIONATE 50 mCg/SPRAY 16 GM NS SCH (09:00)
[2024-04-09] MEDS ORDERED: DIVALPROEX SODIUM 500 MG TAB.SR.24H (DEPAKOTE ER) PO SCH (09:00)
[2024-04-09] MEDS ORDERED: POLYETHYLENE GLYCOL 3350, 17 GM/ POWD.PACK PO SCH (09:00)
== END 2024-04-08 16:54 | disposition home or self-care (01) ==
LOC: SED 10:48 → SMU 20:29
PROVIDERS: ADMIT Specialist; ATTEND Specialist
DX: N39.0 Urinary tract infection, site not specified (principal); I95.9 Hypotension, unspecified; G62.9 Polyneuropathy, unspecified; F03.90 Unspecified dementia, unspecified severity, without behavioral disturbance, psychotic disturbance, mood disturbance, and anxiety; J45.909 Unspecified asthma, uncomplicated; R44.3 Hallucinations, unspecified; R10.9 Unspecified abdominal pain; Z74.01 Bed confinement status; Z79.899 Other long term (current) drug therapy
CPT/HCPCS: 96361 ×2; 96365; 80076; 80048; 81000; 81015; 81001; 83880; 83690; 85025; 87086; 87186; 84484; 36415; 93005; 71045; 70450; 74176; 99285; 83605; 94070; 97110; 97112; 97530; 97162; J0696; G0378 ×2; J7060

== ENCOUNTER 2024-06-17 16:20 | Inpatient (IN) | payer OTHER, MEDICAID ==
[~2024-06-17] VITALS: Ht 157.5 cm; Wt 65.3 kg
[~2024-06-17 16:20] MED LIST changes: -DOXY100C5 PO; -IBUP-1505 PO; +LEVO250T73 PO; -LORA0.5T PO; -PEG4000S4 PO
[2024-06-17 16:35] VITALS: BP_SYST 124; PULSE 118; RESP 18; TEMP 102; O2SAT 95
[2024-06-17 18:17] LABS: BASOPHILS % (AUTO) 0.2 % (0.0-2.0); EOSINOPHILS % (AUTO) 0.1 % (0.0-4.0); HEMATOCRIT 35.3 % (36-48); HEMOGLOBIN 11.9 g/dL (12.0-16.0); LYMPHOCYTES # (AUTO) 0.4 K/uL (1.0-5.5); LYMPHOCYTES % (AUTO) 8.4 % (20.5-51.5); MEAN CORPUSCULAR HEMOGLOBIN 30 pg (27-31); MEAN CORPUSCULAR HGB CONC 34 % (32-36); MEAN CORPUSCULAR VOLUME 90 fL (79.0-98.0); MONOCYTES % (AUTO) 0.9 % (1.7-9.3); NEUTROPHILS # (AUTO) 4.6 K/uL (1.8-7.7); NEUTROPHILS % (AUTO) 90.4 % (40.0-70.0); PLATELET COUNT (AUTO) 200 K/uL (130-430); RED BLOOD CELL COUNT(AUTO) 3.94 MIL/uL (4.2-6.2); RED CELL DISTRIBUTION WIDTH 15.9 % (9.0-15.0); WHITE BLOOD COUNT (AUTO) 5.1 K/uL (4.8-10.8)
[2024-06-17 18:21] LABS: INR 1.1 (0.8-1.2); PROTHROMBIN TIME 11.4 SECS (9.5-12.5)
[2024-06-17 18:34] LABS: ALANINE AMINOTRANSFERASE 12 U/L (12-78); ALBUMIN 2.2 g/dL (3.4-4.8); ANION GAP 13 (5-15); ASPARTATE AMINOTRANSFERASE 16 U/L (10-37); BILIRUBIN,DIRECT 0.1 mg/dL (0.0-0.3); CALCIUM 9.6 mg/dL (8.4-11.0); CARBON DIOXIDE 22 mmol/L (23-29); CHLORIDE 104 mmol/L (98-107); CREATINE KINASE, TOTAL 61 U/L (26-192); CREATININE 1.43 mg/dL (0.55-1.30); GFR AFRICAN AMERICAN 47 mL/min (>90); GLUCOSE 108 mg/dL (74-106); POTASSIUM 3.5 mmol/L (3.5-5.1); SODIUM SERUM 139 mmol/L (136-145); TOTAL BILIRUBIN 0.4 mg/dL (0.0-1.0); TOTAL PROTEIN, SERUM 6.8 g/dL (6.4-8.3); UREA NITROGEN, BLOOD 24 mg/dL (8-21)
[2024-06-17 18:35] LABS: GFR NON AFRICAN-AMERICAN 39 mL/min (>90)
[2024-06-17 18:58] LABS: ACETONE, SERUM NEGATIVE (NEGATIVE)
[2024-06-17] MEDS: cefTRIAXone 1 GM IVPB PREMIX 50 ML IV ONE (19:00)
[2024-06-17] MEDS: NACL 0.9% 2,000 ML IV ONE (19:04)
[2024-06-17 19:44] LABS: COVID19 ANTIGEN SOFIA FIA NEGATIVE (NEGATIVE)
[2024-06-17 19:45] LABS: INFLUENZA TYPE A Negative (NEGATIVE); INFLUENZA TYPE B NEGATIVE (NEGATIVE)
[2024-06-17] MEDS ORDERED: AZITHROMYCIN 500 MG/VIAL (ZITHROMAX) IV ONE (20:47)
[2024-06-17] MEDS: AZITHROMYCIN 500 MG in NS 250 ML IV ONE (21:24)
[2024-06-17 23:04] LABS: BILIRUBIN,URINE NEGATIVE (NEGATIVE); BLOOD, URINE 2+ (NEGATIVE); CLARITY/URINE CLEAR (CLEAR); COLOR,URINE YELLOW (YELLOW); GLUCOSE,URINE NEGATIVE (NEGATIVE); KETONES,URINE NEGATIVE (NEGATIVE); LEUKOCYTE ESTERASE ,URINE 2+ (NEGATIVE); NITRITE, URINE POSITIVE (NEGATIVE); PROTEIN URINE TRACE (NEGATIVE); UROBILINOGEN,URINE 0.2 (0.2-1.0)
[2024-06-17 23:25] LABS: BACTERIA,URINE MODERATE /HPF (None Seen); RBC,URINE >100 /HPF (0-3); WBC,URINE >100 /HPF (0-3)
[2024-06-18] MEDS: cefTRIAXone 1 GM IVPB PREMIX 50 ML IV SCH (01:08)
[2024-06-18] MEDS: D5/0.45 NS 1,000 ML IV SCH (01:15)
[2024-06-18] MEDS ORDERED: LORA-258 PO (01:17)
[2024-06-18] MEDS ORDERED: IBUP100O21 PO (01:17)
[2024-06-18] MEDS ORDERED: FURO-150 PO (01:17)
[2024-06-18] MEDS ORDERED: APIX2.5T PO (01:17)
[2024-06-18] MEDS ORDERED: LORA-259 PO (01:17)
[2024-06-18] MEDS ORDERED: BACL10TA PO (01:17)
[2024-06-18 03:20] VITALS: BP_SYST 110; PULSE 78; RESP 20; TEMP 97.6; O2SAT 96
[2024-06-18 04:22] VITALS: BP_SYST 110; PULSE 78; RESP 20; TEMP 97.8; O2SAT 96
[2024-06-18] MEDS ORDERED: D5W 1,000 ML IV PRN (07:45)
[2024-06-18] MEDS ORDERED: GLUCOSE (DEXTROSE) ORAL GEL -Adults PO PRN (07:45)
[2024-06-18 10:00] VITALS: O2SAT 95
[2024-06-18 12:06] LABS: BASOPHILS % (AUTO) 0.2 % (0.0-2.0); EOSINOPHILS # (AUTO) 0.1 K/uL (0.0-0.4); EOSINOPHILS % (AUTO) 0.4 % (0.0-4.0); HEMATOCRIT 27.4 % (36-48); HEMOGLOBIN 8.8 g/dL (12.0-16.0); LYMPHOCYTES # (AUTO) 1.4 K/uL (1.0-5.5); LYMPHOCYTES % (AUTO) 7.5 % (20.5-51.5); MEAN CORPUSCULAR HEMOGLOBIN 29 pg (27-31); MEAN CORPUSCULAR HGB CONC 32 % (32-36); MEAN CORPUSCULAR VOLUME 91 fL (79.0-98.0); MONOCYTES # (AUTO) 1.4 K/uL (0.0-1.0); MONOCYTES % (AUTO) 7.5 % (1.7-9.3); NEUTROPHILS # (AUTO) 15.5 K/uL (1.8-7.7); NEUTROPHILS % (AUTO) 84.4 % (40.0-70.0); PLATELET COUNT (AUTO) 139 K/uL (130-430); RED CELL DISTRIBUTION WIDTH 16.1 % (9.0-15.0); WHITE BLOOD COUNT (AUTO) 18.3 K/uL (4.8-10.8)
[2024-06-18 12:24] LABS: ALBUMIN 1.7 g/dL (3.4-4.8); CREATININE 1.28 mg/dL (0.55-1.30); TOTAL PROTEIN, SERUM 5.4 g/dL (6.4-8.3)
[2024-06-18] MEDS: DEXTROSE 50% JECT 50 ML DISP.SYRIN IVP PRN (12:25)
[2024-06-18 12:38] LABS: TOTAL BILIRUBIN 0.2 mg/dL (0.0-1.0)
[2024-06-18 14:12] VITALS: BP_SYST 111; PULSE 59; RESP 20; TEMP 97.2; O2SAT 95
[2024-06-18] MEDS: PIPERACILLIN/TAZO 3.375 GM in D5W 50 ML IV SCH (14:22)
[2024-06-18 17:19] VITALS: BP_SYST 119; PULSE 97; RESP 16; TEMP 98.6; O2SAT 99
[2024-06-18 20:00] VITALS: BP_SYST 125; PULSE 90; RESP 16; TEMP 97.3; O2SAT 94
[2024-06-18] MEDS ORDERED: HALOPERIDOL LACTATE 5 MG/ML VIAL IM PRN (20:30)
[2024-06-18] MEDS: KCL 20 mEq in 100 mL (PREMIX) 100 ML IV SCH (22:14)
[2024-06-19] VITALS (7 sets, daily range): BP systolic 113–137; PULSE 89–107; RESP 15–20; TEMP 97.2–98.4; O2SAT 95–97
[2024-06-19 06:28] LABS: BASOPHILS % (AUTO) 0.1 % (0.0-2.0); EOSINOPHILS # (AUTO) 0.1 K/uL (0.0-0.4); EOSINOPHILS % (AUTO) 0.5 % (0.0-4.0); HEMATOCRIT 29.2 % (36-48); HEMOGLOBIN 9.5 g/dL (12.0-16.0); LYMPHOCYTES # (AUTO) 1.1 K/uL (1.0-5.5); LYMPHOCYTES % (AUTO) 6.4 % (20.5-51.5); MEAN CORPUSCULAR HEMOGLOBIN 29 pg (27-31); MEAN CORPUSCULAR HGB CONC 33 % (32-36); MEAN CORPUSCULAR VOLUME 90 fL (79.0-98.0); MONOCYTES % (AUTO) 5.9 % (1.7-9.3); NEUTROPHILS # (AUTO) 14.3 K/uL (1.8-7.7); NEUTROPHILS % (AUTO) 87.1 % (40.0-70.0); PLATELET COUNT (AUTO) 160 K/uL (130-430); RED BLOOD CELL COUNT(AUTO) 3.25 MIL/uL (4.2-6.2); WHITE BLOOD COUNT (AUTO) 16.5 K/uL (4.8-10.8)
[2024-06-19 06:46] LABS: CALCIUM 9.2 mg/dL (8.4-11.0); CREATININE 0.99 mg/dL (0.55-1.30); POTASSIUM 3.4 mmol/L (3.5-5.1)
[2024-06-19 12:34] LABS: BASOPHILS % (AUTO) 0.1 % (0.0-2.0); EOSINOPHILS # (AUTO) 0.1 K/uL (0.0-0.4); EOSINOPHILS % (AUTO) 0.6 % (0.0-4.0); HEMATOCRIT 27.9 % (36-48); HEMOGLOBIN 9.1 g/dL (12.0-16.0); LYMPHOCYTES # (AUTO) 0.9 K/uL (1.0-5.5); LYMPHOCYTES % (AUTO) 6.1 % (20.5-51.5); MEAN CORPUSCULAR HEMOGLOBIN 29 pg (27-31); MEAN CORPUSCULAR HGB CONC 33 % (32-36); MEAN CORPUSCULAR VOLUME 90 fL (79.0-98.0); MONOCYTES # (AUTO) 0.9 K/uL (0.0-1.0); MONOCYTES % (AUTO) 6.2 % (1.7-9.3); NEUTROPHILS # (AUTO) 12.7 K/uL (1.8-7.7); PLATELET COUNT (AUTO) 151 K/uL (130-430); WHITE BLOOD COUNT (AUTO) 14.6 K/uL (4.8-10.8)
[2024-06-19] MEDS: IPRATROPIUM/ALBUTEROL SULFATE 3 ML AMPUL.NEB (DUONEB) INH SCH (21:35)
[2024-06-20] VITALS (11 sets, daily range): BP systolic 120–139; PULSE 60–93; RESP 16–20; TEMP 97.1–98; O2SAT 95–99
[2024-06-20 07:40] LABS: BASOPHILS % (AUTO) 0.2 % (0.0-2.0); EOSINOPHILS # (AUTO) 0.2 K/uL (0.0-0.4); EOSINOPHILS % (AUTO) 1.6 % (0.0-4.0); HEMATOCRIT 29.2 % (36-48); HEMOGLOBIN 9.3 g/dL (12.0-16.0); LYMPHOCYTES # (AUTO) 1.1 K/uL (1.0-5.5); LYMPHOCYTES % (AUTO) 9.4 % (20.5-51.5); MEAN CORPUSCULAR HEMOGLOBIN 29 pg (27-31); MEAN CORPUSCULAR HGB CONC 32 % (32-36); MEAN CORPUSCULAR VOLUME 91 fL (79.0-98.0); MONOCYTES # (AUTO) 0.9 K/uL (0.0-1.0); MONOCYTES % (AUTO) 7.8 % (1.7-9.3); NEUTROPHILS # (AUTO) 9.1 K/uL (1.8-7.7); PLATELET COUNT (AUTO) 146 K/uL (130-430); RED BLOOD CELL COUNT(AUTO) 3.21 MIL/uL (4.2-6.2); RED CELL DISTRIBUTION WIDTH 16.2 % (9.0-15.0); WHITE BLOOD COUNT (AUTO) 11.2 K/uL (4.8-10.8)
[2024-06-20 07:51] LABS: CALCIUM 9.4 mg/dL (8.4-11.0); CREATININE 1.07 mg/dL (0.55-1.30); POTASSIUM 3.2 mmol/L (3.5-5.1)
[2024-06-20] MEDS ORDERED: POTASSIUM CHLORIDE 40 MEQ in 0.45% NS 250 ML IV ONE (11:30)
[2024-06-20] MEDS: KCL 20 mEq in 100 mL (PREMIX) 100 ML IV SCH (13:03)
[2024-06-20] MEDS ORDERED: MEMANTINE HCL 7 MG CAP.SPR.24 PO SCH (21:00)
[2024-06-20] MEDS ORDERED: LORazepam 1 MG TABLET PO SCH (21:00)
[2024-06-20] MEDS: DIVALPROEX SODIUM 500 MG TAB.SR.24H (DEPAKOTE ER) PO ONE (21:30)
[2024-06-20] MEDS: MEGESTROL ACETATE 400 MG/10 ML UDC PO SCH (21:35)
[2024-06-20] MEDS: MIDODRINE HCL 5 MG TABLET (PROAMATINE) PO SCH (21:35)
[2024-06-20] MEDS: MEMANTINE HCL 5 MG TABLET PO SCH (21:36)
[2024-06-20] MEDS: APIXABAN 2.5 MG TABLET PO SCH (21:39)
[2024-06-21] VITALS (10 sets, daily range): BP systolic 102–139; PULSE 73–87; RESP 16–18; TEMP 96.9–98.1; O2SAT 95–99
[2024-06-21] MEDS: VALPROIC ACID ORAL SYRUP 250 MG/5 ML UDC PO ONE (00:42)
[2024-06-21] MEDS: LEVOTHYROXINE SODIUM 0.088 MG TABLET PO SCH (06:00)
[2024-06-21] MEDS: FLUTICASONE PROPIONATE 50 mCg/SPRAY 16 GM NS SCH (08:48)
[2024-06-21] MEDS: DIVALPROEX SODIUM 125 MG CAP.(DEPAKOTE SPRINKLE) PO SCH ×2 (08:49→12:34)
[2024-06-21] MEDS: buPROPion HCL 150 MG XL TAB PO SCH (08:49)
[2024-06-21] MEDS: Effexor 37.5 MG TAB PO SCH (08:49)
[2024-06-21] MEDS: PANTOPRAZOLE SODIUM 40 MG TAB PO SCH (08:50)
[2024-06-21] MEDS: FUROSEMIDE 20 MG TABLET PO SCH (08:50)
[2024-06-21] MEDS: FOLIC ACID 1 MG TABLET PO SCH (08:50)
[2024-06-21] MEDS: CHOLECALCIFEROL (VITAMIN D3) 2,000 UNIT TABLET PO SCH (08:50)
[2024-06-21] MEDS ORDERED: DIVALPROEX SODIUM 500 MG TAB.SR.24H (DEPAKOTE ER) PO SCH (09:00)
[2024-06-21 10:27] LABS: BASOPHILS % (AUTO) 0.3 % (0.0-2.0); EOSINOPHILS # (AUTO) 0.4 K/uL (0.0-0.4); HEMATOCRIT 30.4 % (36-48); HEMOGLOBIN 9.8 g/dL (12.0-16.0); LYMPHOCYTES # (AUTO) 1.8 K/uL (1.0-5.5); MEAN CORPUSCULAR HEMOGLOBIN 29 pg (27-31); MEAN CORPUSCULAR HGB CONC 32 % (32-36); MEAN CORPUSCULAR VOLUME 90 fL (79.0-98.0); MONOCYTES # (AUTO) 1.4 K/uL (0.0-1.0); MONOCYTES % (AUTO) 12.1 % (1.7-9.3); NEUTROPHILS # (AUTO) 8.3 K/uL (1.8-7.7); NEUTROPHILS % (AUTO) 69.6 % (40.0-70.0); PLATELET COUNT (AUTO) 170 K/uL (130-430); RED CELL DISTRIBUTION WIDTH 16.1 % (9.0-15.0); WHITE BLOOD COUNT (AUTO) 11.9 K/uL (4.8-10.8)
[2024-06-21 10:45] LABS: CALCIUM 8.9 mg/dL (8.4-11.0); CREATININE 1.01 mg/dL (0.55-1.30); POTASSIUM 3.7 mmol/L (3.5-5.1)
[2024-06-21] MEDS: MONTELUKAST 10 MG TABLET PO SCH (17:48)
[2024-06-22] VITALS (8 sets, daily range): BP systolic 95–122; PULSE 75–97; RESP 18–19; TEMP 97.2–99.2; O2SAT 92–99
[2024-06-22 01:20] LABS: BILIRUBIN,URINE NEGATIVE (NEGATIVE); BLOOD, URINE 2+ (NEGATIVE); CLARITY/URINE SL CLOUDY (CLEAR); COLOR,URINE YELLOW (YELLOW); GLUCOSE,URINE NEGATIVE (NEGATIVE); KETONES,URINE NEGATIVE (NEGATIVE); NITRITE, URINE NEGATIVE (NEGATIVE); PH,URINE 6.5 (5.0-8.0); PROTEIN URINE NEGATIVE (NEGATIVE); UROBILINOGEN,URINE 0.2 (0.2-1.0)
[2024-06-22 01:38] LABS: LEUKOCYTE ESTERASE ,URINE TRACE (NEGATIVE)
[2024-06-22 01:53] LABS: YEAST,URINE Few /HPF (None Seen)
[2024-06-22 01:54] LABS: BACTERIA,URINE FEW /HPF (None Seen)
[2024-06-22 07:54] LABS: BASOPHILS % (AUTO) 0.3 % (0.0-2.0); EOSINOPHILS # (AUTO) 0.4 K/uL (0.0-0.4); EOSINOPHILS % (AUTO) 2.7 % (0.0-4.0); HEMOGLOBIN 9.7 g/dL (12.0-16.0); LYMPHOCYTES % (AUTO) 14.3 % (20.5-51.5); MEAN CORPUSCULAR HEMOGLOBIN 29 pg (27-31); MEAN CORPUSCULAR HGB CONC 32 % (32-36); MEAN CORPUSCULAR VOLUME 90 fL (79.0-98.0); MONOCYTES # (AUTO) 1.9 K/uL (0.0-1.0); MONOCYTES % (AUTO) 13.7 % (1.7-9.3); NEUTROPHILS # (AUTO) 9.6 K/uL (1.8-7.7); PLATELET COUNT (AUTO) 198 K/uL (130-430); RED BLOOD CELL COUNT(AUTO) 3.34 MIL/uL (4.2-6.2)
[2024-06-22 08:30] LABS: CALCIUM 8.6 mg/dL (8.4-11.0); CREATININE 0.93 mg/dL (0.55-1.30); POTASSIUM 3.1 mmol/L (3.5-5.1)
[2024-06-22] MEDS: POTASSIUM CHLORIDE 20 MEQ/PKT PACKET PO ONE (13:17)
[2024-06-23] VITALS (9 sets, daily range): BP systolic 79–108; PULSE 82–88; RESP 12–20; TEMP 96.2–98.8; O2SAT 91–99
[2024-06-23 10:50] LABS: BASOPHILS % (AUTO) 0.2 % (0.0-2.0); EOSINOPHILS # (AUTO) 0.4 K/uL (0.0-0.4); EOSINOPHILS % (AUTO) 3.1 % (0.0-4.0); HEMATOCRIT 25.4 % (36-48); HEMOGLOBIN 8.5 g/dL (12.0-16.0); LYMPHOCYTES # (AUTO) 1.7 K/uL (1.0-5.5); LYMPHOCYTES % (AUTO) 13.9 % (20.5-51.5); MEAN CORPUSCULAR HEMOGLOBIN 30 pg (27-31); MEAN CORPUSCULAR HGB CONC 33 % (32-36); MEAN CORPUSCULAR VOLUME 90 fL (79.0-98.0); MONOCYTES # (AUTO) 1.7 K/uL (0.0-1.0); MONOCYTES % (AUTO) 13.8 % (1.7-9.3); NEUTROPHILS # (AUTO) 8.6 K/uL (1.8-7.7); PLATELET COUNT (AUTO) 187 K/uL (130-430); RED BLOOD CELL COUNT(AUTO) 2.83 MIL/uL (4.2-6.2); RED CELL DISTRIBUTION WIDTH 16.5 % (9.0-15.0); WHITE BLOOD COUNT (AUTO) 12.5 K/uL (4.8-10.8)
[2024-06-23 11:14] LABS: CALCIUM 8.5 mg/dL (8.4-11.0); CREATININE 0.91 mg/dL (0.55-1.30)
[2024-06-23] MEDS: CEFEPIME 2 GM in D5W 100 ML IV SCH (18:00)
[2024-06-23] MEDS: LORazepam 2 MG/ML VIAL IM PRN (23:25)
[2024-06-24] VITALS (10 sets, daily range): BP systolic 110–125; PULSE 74–89; RESP 16–18; TEMP 97.2–98.4; O2SAT 94–97
[2024-06-24 08:32] LABS: BASOPHILS % (AUTO) 0.1 % (0.0-2.0); EOSINOPHILS # (AUTO) 0.4 K/uL (0.0-0.4); EOSINOPHILS % (AUTO) 3.2 % (0.0-4.0); HEMATOCRIT 26.6 % (36-48); HEMOGLOBIN 8.5 g/dL (12.0-16.0); LYMPHOCYTES # (AUTO) 1.5 K/uL (1.0-5.5); LYMPHOCYTES % (AUTO) 11.7 % (20.5-51.5); MEAN CORPUSCULAR HEMOGLOBIN 29 pg (27-31); MEAN CORPUSCULAR HGB CONC 32 % (32-36); MEAN CORPUSCULAR VOLUME 91 fL (79.0-98.0); MONOCYTES # (AUTO) 1.3 K/uL (0.0-1.0); MONOCYTES % (AUTO) 10.3 % (1.7-9.3); NEUTROPHILS # (AUTO) 9.5 K/uL (1.8-7.7); NEUTROPHILS % (AUTO) 74.7 % (40.0-70.0); PLATELET COUNT (AUTO) 229 K/uL (130-430); RED BLOOD CELL COUNT(AUTO) 2.92 MIL/uL (4.2-6.2); RED CELL DISTRIBUTION WIDTH 16.4 % (9.0-15.0); WHITE BLOOD COUNT (AUTO) 12.8 K/uL (4.8-10.8)
[2024-06-24 08:51] LABS: CREATININE 0.93 mg/dL (0.55-1.30); POTASSIUM 3.1 mmol/L (3.5-5.1)
[2024-06-24] MEDS ORDERED: CEFE2FRO IV (15:18)
[2024-06-25] VITALS (8 sets, daily range): BP systolic 108–138; PULSE 76–98; RESP 16–21; TEMP 96.9–98.6; O2SAT 93–99
== END 2024-06-25 17:00 | DRG 871 ==
LOC: SED 16:20 → SMU 06-18 00:18 → STU 06-18 15:00 → SMU 06-22 05:26
PROVIDERS: ADMIT Specialist; ATTEND Specialist
DX: A41.51 Sepsis due to Escherichia coli [E. coli] (principal); G93.41 Metabolic encephalopathy; J69.0 Pneumonitis due to inhalation of food and vomit; J96.00 Acute respiratory failure, unspecified whether with hypoxia or hypercapnia; J18.9 Pneumonia, unspecified organism; E87.0 Hyperosmolality and hypernatremia; N12 Tubulo-interstitial nephritis, not specified as acute or chronic; N17.9 Acute kidney failure, unspecified; Z20.822 Contact with and (suspected) exposure to COVID-19; E03.9 Hypothyroidism, unspecified; G40.909 Epilepsy, unspecified, not intractable, without status epilepticus; R13.10 Dysphagia, unspecified; J45.909 Unspecified asthma, uncomplicated; F79 Unspecified intellectual disabilities; D64.9 Anemia, unspecified; Z88.1 Allergy status to other antibiotic agents; Z79.899 Other long term (current) drug therapy; Z79.01 Long term (current) use of anticoagulants
CPT/HCPCS: 36415; 70450-TC; 71045; 80048; 80053; 80076; 81000; 81001; 81015; 82009; 82550; 82948; 83605; 84443; 84484; 85025; 85610; 85730; 87040; 87086; 87186; 92610-GN; 93005; 94070; 94640; 94760; 97110-GP; 97530-GP; 99291; G0378; J0456; J0692; J0696; J2060; J2543; J3480; J7030; J7060